=== PATIENT | female | born 1940 | race Caucasian/White ===

== ENCOUNTER 2020-09-14 22:34 | Emergency (ER) | payer MEDICARE, SELFPAY ==
--- NOTE | ~2020-09-14 | XR_ITS ---
EXAMINATION: XR CHEST CLINICAL INFORMATION: Chest pain COMPARISON: Chest x-ray 12/10/2019 TECHNIQUE: Frontal portable view of the chest was obtained. 11:09 PM FINDINGS: Lungs are clear. No pulmonary vascular congestion. There is no pleural effusion. The heart size is normal. The cardiac and mediastinal contours are normal. There are calcifications of the thoracic aorta. There are multilevel degenerative changes of dorsal spine. XR/XR chest 1V IMPRESSION: Unremarkable examination.
[2020-09-14 22:37] VITALS: BP 181/68; PULSE 92; RESP 18; TEMP 36.7; O2SAT 98; BMI 31.1
--- NOTE | 2020-09-14 22:43 | ECG_ITS ---
Test Reason : CHEST PAIN Blood Pressure : / mmHG Vent. Rate : 085 BPM Atrial Rate : 085 BPM P-R Int : 154 ms QRS Dur : 140 ms QT Int : 400 ms P-R-T Axes : 039 -80 024 degrees QTc Int : 476 ms Normal sinus rhythm Right bundle branch block Left anterior fascicular block Bifascicular block Septal infarct , age undetermined Abnormal ECG When compared with ECG of 10-DEC-2019 17:47, Right bundle branch block is now Present Referred By: Generic ED Physician Electronically Signed By:DOMINICK HERRERA MD
[2020-09-14 23:48] LABS: MANUAL DIFF FLAG NO
[2020-09-14] MEDS: Aspirin Enteric Coated 325 MG TABLET.DR PO (23:48)
[2020-09-14 23:49] LABS: Basophils Percent Auto 0.2 % (0-2); Hematocrit 36.1 % (37-47); Hemoglobin 11.5 g/dl (12.0-16.0); Imm Gran Abs Auto 0.06 X10*3/uL (0.00-0.03); Imm Gran Pct Auto 0.5 % (0.0-0.4); Lymphocytes Absolute Auto 0.8 X10*3/uL (1.2-4.9); Lymphocytes Percent Auto 6.7 % (20-40); Mean Corpuscular HGB Conc 31.9 g/dl (31.0-35.0); Mean Corpuscular Hemoglobin 25.6 pg (27.0-33.0); Mean Corpuscular Volume 80.2 fL (80-98); Mean Platelet Volume 9.9 fL (9.4-12.3); Monocytes Absolute Auto 0.7 X10*3/uL (0.1-1.2); Monocytes Percent Auto 5.9 % (2-11); Neutrophils Absolute Auto 10.4 X10*3/uL (2.0-8.3); Neutrophils Percent Auto 86.7 % (45-73); Platelet Count 358 X10*3/uL (160-400); Red Cell Distribution Width 14.4 % (11.0-16.0)
[2020-09-15 00:09] LABS: Anion Gap 15 (12-20); Blood Urea Nitrogen 15 mg/dL (9-16); Calcium 9.6 mg/dL (8.4-10.2); Carbon Dioxide 27 mmol/L (22-29); Chloride 101 mmol/L (96-108); Estimated Glomerular Filt Rate > 60; Glucose Random 209 mg/dL (60-115); Potassium 3.6 mmol/L (3.3-5.1); Sodium 139 mmol/L (135-145)
[2020-09-15 00:17] LABS: Troponin-I High Sensitivity 3.5 ng/L (<3.5-17.0)
--- NOTE | 2020-09-15 00:58 | ED.CHESTPAIN ---
HPI - Chest Pain General Chief Complaint: Chest Pain Stated Complaint: chest pain Time Seen by Provider: 09/14/20 22:53 Source: patient Mode of arrival: ambulatory Limitations: no limitations History of Present Illness HPI narrative: patient comes emergency room complaining of chest pressure. Patient states that she has had this sensation before, usually triggered by an environment for allergen. Patient used her inhaler twice but then resolved the chest pressure. However, when patient arrived to emergency room, she no longer had any symptoms. Patient states the chest pressure started earlier this morning. Related Data Allergies Allergy/AdvReac Type Severity Reaction Status Date / Time NSAIDS (Non-Steroidal Allergy Severe HIGH DOSES Verified 09/14/20 22:36 Anti-Inflamma AFFECT HER [NSAIDS (NON-STEROIDAL ANTI-INFLAMMA] Sulfa (Sulfonamide Allergy Intermediate THROAT Verified 09/14/20 22:36 Antibiotics) CLOSES [SULFA (SULFONAMIDE ANTIBIOTICS)] BEE STINGS Allergy Intermediate SYNCOPE, Uncoded 12/10/19 16:28 RASH Review of Systems Review of Systems: Constitutional : No Weight loss, No Fever, No Chills, No Night Sweats, No Fatigue, No Malaise ENT/Mouth : No Hearing loss, No Ear Pain, No Nasal Congestion, No Sinus Pain, No Hoarseness, No sore throat, No Rhinorrhea, No Swallowing Difficulty Eyes: No Eye Pain, No Swelling, No Redness, No Foreign Body, No Discharge, No Vision Changes Cardiovascular Chest pressure that resolved, No SOB, No Dyspnea on Exertion, No Orthopnea, No Edema, No Palpitations Respiratory : No Cough, No Sputum, No Wheezing, No Smoke Exposure, No Dyspnea Gastrointestinal : No Nausea, No Vomiting, No Diarrhea, No Constipation, No abdominal Pain, No Hematochezia, No Melena Genitourinary : no irregular bleeding, No Dysuria, No Urinary Frequency, No Hematuria, No Urinary Incontinence, No Urgency, No Flank Pain, No Urinary Flow Changes, No Hesitancy Musculoskeletal : No joint pain, No Myalgias, No Joint Swelling Skin : No Skin Lesions, No rash Neuro : No Weakness, No Numbness, No Paresthesias, No Loss of Consciousness, No Dizziness, No Headache Psych : No Anxiety/Panic, No Depression, No SI/HI/AH/VH, No Social Issues, Heme/Lymph: No Bruising, No Bleeding,No Lymphadenopathy Endocrine : No Polyuria, No Polydipsia, No Temperature Intolerance [facility] Past Medical History Medical History Arthritis COVID-19 HTN (hypertension) Reactive airway disease Spinal stenosis Surgical History H/O: hysterectomy Total knee replacement status Social History Social History Advance Directives: No Advance Directives Information Provided: No Physical Exam Vital Signs: Vital Signs: Last Vital Signs Temp 98.1 F 09/14/20 22:37 Pulse 92 09/14/20 22:37 Resp 18 09/14/20 22:37 BP 181/68 H 09/14/20 22:37 Pulse Ox 98 09/14/20 22:37 Body Mass Index 31.1 Appearance: Alert. Oriented X3. No acute distress. Eyes: Pupils equal, round and reactive to light. ENT: Pharynx normal. Neck: Normal inspection. Neck supple. No lymph nodes noted. No crepitus CVS: Normal heart rate and rhythm. Pulses normal. Normal S1 and S2, +2 systolic murmur in left sternal border Respiratory: No respiratory distress. Breath sounds normal. No Wheezing. No rales Abdomen: Soft and nontender. No rigidity. No distention. good BS x4 Skin: Skin warm and dry. Normal skin color. Normal skin turgor. Extremities: No lower extremity edema. No lower extremity edema. No Lacerations. No Rash Neuro: Oriented X 3. No motor deficit. No sensory deficit. Moving all extermities. No slurred speech. Course Course Course Narrative: patient remains asymptomatic, it has been over 8 hours since patient initially developed the symptoms, troponin is negative. Patient remains asymptomatic MDM - Chest Pain Lab Data Result diagrams: 09/14/20 23:43 09/14/20 23:43 Labs: Lab Results 09/14/20 09/14/20 09/14/20 Range/Units 23:43 23:43 23:43 WBC 12.0 H (4.8-10.8) X10*3/uL RBC 4.50 (4.20-5.50) X10*6/uL Hgb 11.5 L (12.0-16.0) g/dl Hct 36.1 L (37-47) % MCV 80.2 (80-98) fL MCH 25.6 L (27.0-33.0) pg MCHC 31.9 (31.0-35.0) g/dl RDW 14.4 (11.0-16.0) % Plt Count 358 (160-400) X10*3/uL MPV 9.9 (9.4-12.3) fL Immature Gran % (Auto) 0.5 H (0.0-0.4) % Neut % (Auto) 86.7 H (45-73) % Lymph % (Auto) 6.7 L (20-40) % [place] % (Auto) 5.9 (2-11) % Eos % (Auto) 0.0 (0-4) % Baso % (Auto) 0.2 (0-2) % Lymph # (Auto) 0.8 L (1.2-4.9) X10*3/uL [place] # (Auto) 0.7 (0.1-1.2) X10*3/uL Eos # (Auto) 0.0 (0.0-0.4) X10*3/uL Baso # (Auto) 0.0 (0.0-0.2) X10*3/uL Abs Immat Gran (auto) 0.06 H (0.00-0.03) X10*3/uL Absolute Neuts (auto) 10.4 H (2.0-8.3) X10*3/uL Absolute Nucleated RBC 0.000 (0.0-0.012) X10*3/uL Nucleated RBC % (auto) 0.0 (0.0-0.2) /100WBC Sodium 139 (135-145) mmol/L Potassium 3.6 (3.3-5.1) mmol/L Chloride 101 (96-108) mmol/L Carbon Dioxide 27 (22-29) mmol/L Anion Gap 15 (12-20) BUN 15 (9-16) mg/dL Creatinine 0.68 (0.5-1.4) mg/dL Estim Creat Clear Calc 57.0 Estimated GFR > 60 Random Glucose 209 H (60-115) mg/dL Calcium 9.6 (8.4-10.2) mg/dL Troponin I High Sens 3.5 (<3.5-17.0) ng/L Imaging Data Chest x-ray: Radiologist's impression: FINDINGS: Lungs are clear. No pulmonary vascular congestion. There is no pleural effusion. The heart size is normal. The cardiac and mediastinal contours are normal. There are calcifications of the thoracic aorta. There are multilevel degenerative changes of dorsal spine. XR/XR chest 1V IMPRESSION: Unremarkable examination. ECG Data ECG #1: Attestation: I personally reviewed and interpreted this ECG as follows: ( senna rhythm, right bundle branch block, nonspecific T-wave inversion in lead V2, QTC 476) Discharge Plan Discharge Clinical Impression: Atypical chest pain Patient Disposition: Home, Self-Care Instructions: Chest Pain (ED) Additional Instructions: Please follow-up with your primary care physician tomorrow. If you have any worsening or new symptoms, please return to the emergency room or call 911
[2020-09-15 01:12] VITALS: BP 128/72; PULSE 67; RESP 16; TEMP 36.7; O2SAT 99
== END 2020-09-15 01:14 | disposition home or self-care (01) ==
PROVIDERS: Emergency Provider Emergency Medicine; PCP Internal Medicine
DX: R07.89 Other chest pain (principal); I10 Essential (primary) hypertension
CPT/HCPCS: 36415; 71045; 80048; 84484; 85025; 93005; 99283; 99284

== ENCOUNTER 2023-10-26 19:00 | Emergency (ER) | payer MEDICARE, SELFPAY ==
--- NOTE | 2023-10-26 | ECG_ITS ---
Test Reason : CHEST PAIN Blood Pressure : / mmHG Vent. Rate : 083 BPM Atrial Rate : 083 BPM P-R Int : 162 ms QRS Dur : 140 ms QT Int : 400 ms P-R-T Axes : 036 -82 017 degrees QTc Int : 470 ms Normal sinus rhythm Right bundle branch block Left anterior fascicular block Bifascicular block Abnormal ECG When compared with ECG of 14-SEP-2020 22:51, No significant change was found Referred By: Generic ED Physician Electronically Signed By:DOMINICK HERRERA MD
[2023-10-26 19:08] VITALS: BP 172/104; PULSE 91; O2SAT 99
[2023-10-26 19:09] VITALS: BP 164/81; PULSE 91; RESP 18; TEMP 36.7; O2SAT 96; BMI 31.5
--- NOTE | 2023-10-26 19:18 | PC.NURSE ---
pt states she is pain free but then goes on to state I have waves of tremendous heart burn. endorses the need to spit up when the heart burn is bothering her.
[2023-10-26 19:28] LABS: MANUAL DIFF FLAG NO
[2023-10-26 19:29] LABS: Basophils Absolute Auto 0.1 X10*3/uL (0.0-0.2); Basophils Percent Auto 0.9 % (0-2); Eosinophils Absolute Auto 0.2 X10*3/uL (0.0-0.4); Eosinophils Percent Auto 2.4 % (0-4); Hematocrit 34.2 % (37.0-47.0); Hemoglobin 10.9 g/dl (12.0-16.0); Imm Gran Abs Auto 0.02 X10*3/uL (0.00-0.03); Imm Gran Pct Auto 0.3 % (0.0-0.4); Lymphocytes Absolute Auto 1.7 X10*3/uL (1.2-4.9); Lymphocytes Percent Auto 21.9 % (20-40); Mean Corpuscular HGB Conc 31.9 g/dl (31.0-35.0); Mean Corpuscular Hemoglobin 24.4 pg (27.0-33.0); Mean Corpuscular Volume 76.7 fL (80.0-98.0); Mean Platelet Volume 10.3 fL (9.4-12.3); Monocytes Absolute Auto 0.6 X10*3/uL (0.1-1.2); Monocytes Percent Auto 7.9 % (2-11); Neutrophils Percent Auto 66.6 % (45-73); Platelet Count 298 X10*3/uL (160-400); Red Blood Count 4.46 X10*6/uL (4.20-5.50); Red Cell Distribution Width 16.6 % (11.0-16.0); White Blood Count 7.6 X10*3/uL (4.8-10.8)
[2023-10-26 19:46] LABS: Alanine Aminotransferase 15 U/L (0-31); Albumin Level 4.2 g/dL (3.5-5.0); Alkaline Phosphatase 64 U/L (39-117); Anion Gap 12 (12-20); Aspartate Amino Transferase 20 U/L (5-31); Bilirubin Direct 0.1 mg/dL (0.0-0.5); Bilirubin Total 0.3 mg/dL (0.0-1.0); Blood Urea Nitrogen 21 mg/dL (9-16); Calcium 9.9 mg/dL (8.4-10.2); Carbon Dioxide 27 mmol/L (22-29); Chloride 106 mmol/L (96-108); Estimated Glomerular Filt Rate > 60; Glucose Random 101 mg/dL (60-115); Lipase 53 U/L (8-78); Potassium 3.9 mmol/L (3.3-5.1); Sodium 141 mmol/L (135-145)
[2023-10-27] VITALS: BP 136/81; PULSE 74; RESP 16; TEMP 36.7
[2023-10-27 02:00] VITALS: BP 135/84; PULSE 69; RESP 18; TEMP 36.8; O2SAT 95
--- NOTE | 2023-10-27 03:23 | ED.GENADULT ---
HPI - General Adult General Chief complaint: General Medical Stated complaint: was choking, now just has tight feeling in throat Time Seen by Provider: 10/27/23 03:23 History of Present Illness ED Provider: Nic CONKLIN narrative: The patient is an 83-year-old woman who developed a severe choking episode. She had prepared ribs for dinner. She says she used a recipe she has used many times. She was eating her 1st rib when she started to have a choking episode. The choking episode was quite prolonged and associated with a sense of significant heartburn. Ultimately she had to call an ambulance because the symptoms were so severe. By the time that I saw the patient her symptoms had entirely subsided and she had been feeling well for some time. She says that she had a total of about 4 hours during which time she had a lot of heartburn and was continuously bringing up saliva and spitting. She has never had an episode like this before. Related Data Allergies Allergy/AdvReac Type Severity Reaction Status Date / Time NSAIDS (Non-Steroidal Allergy Severe HIGH DOSES Verified 10/26/23 19:11 Anti-Inflamma AFFECT HER [NSAIDS (NON-STEROIDAL ANTI-INFLAMMA] Sulfa (Sulfonamide Allergy Intermediate THROAT Verified 10/26/23 19:11 Antibiotics) CLOSES [SULFA (SULFONAMIDE ANTIBIOTICS)] Bleach (Sodium Hypochlorite) Allergy Difficulty Verified 10/26/23 19:11 Breathing BEE STINGS Allergy Intermediate SYNCOPE, Uncoded 10/26/23 19:11 RASH Review of Systems Review of Systems: Yes all other systems are reviewed and are negative PMFSH Past Medical History Medical History Arthritis COVID-19 HTN (hypertension) Reactive airway disease Spinal stenosis Surgical History H/O: hysterectomy Total knee replacement status Social History Social History Smoked in Last 30 Days: No Use of substances other than those prescribed or required for medical reasons: No Advance Directives: No Advance Directives Information Provided: No Physical Exam ED Vital Signs: Vital Signs - 24 hr 10/26/23 19:09 10/27/23 00:00 10/27/23 02:00 Temperature 98.1 F 98.0 F 98.2 F Pulse Rate 91 74 69 Respiratory Rate 18 16 18 Blood Pressure 164/81 H 136/81 135/84 Pulse Oximetry 96 95 Oxygen Delivery Method Room Air Room Air 10/27/23 04:00 10/27/23 04:35 Temperature 97.9 F 97.9 F Pulse Rate 65 65 Respiratory Rate 12 12 Blood Pressure 154/95 H 154/95 H Pulse Oximetry 98 98 Oxygen Delivery Method Room Air Room Air BMI result Body Mass Index 31.5 Const Other: The patient is a very pleasant 83-year-old woman. She appears somewhat chronically frail, but does not seem acutely ill in anyway. HENMT Other: Face is symmetrical. Mucous membranes moist. Posterior pharynx is unremarkable. Mouth: Normal oral and palatal mucosa present, oropharynx normal and moist mucous membranes Eyes General: appearance normal, both eyes and all related structures Alignment and Position: alignment normal Conjunctivae: conjunctivae normal Pupils: Equal, round and reactive pupils present Neck Neck: Yes full ROM and Yes no JVD Resp Effort & Inspection: normal respiratory effort Auscultation: clear to auscultation bilaterally Cardio Rate: regular rate Rhythm: regular rhythm Heart sounds: S1 normal heart sound present and S2 normal heart sound present GI Other: Soft and non-tender Skin General skin exam: no rashes or lesions noted and dry skin Neuro Other: The patient is awake, alert, pleasant, cooperative. Demeanor is entirely nontoxic. Cranial nerves grossly intact. Moves extremities normally. Steady gait. Cranial nerves: Yes Equal, round and reactive pupils present Extrem General: Yes normal to inspection and Yes no pedal edema Medical Decision Making Medical Decision Making MDM Narrative: The patient is a very pleasant 83-year-old who presents to the emergency room after a prolonged choking episode that began as she was eating some ribs she had just cooked. She describes wretch and bringing up ?slime? for several hours and having significant chest discomfort that she describes as heartburn. Her EKG is unchanged. Her symptoms resolved spontaneously. She is currently tolerating her secretions normally and is able to drink fluids easily. No current signs of an esophageal obstruction. A troponin was done several hours after the end of her episode and was normal. My suspicion for an acute coronary syndrome in this case would be low. Her EKG is unchanged. I think she may be discharged with instructions to avoid, spicy food and chew her food and follow up with her regular doctor. Lab Data 10/26/23 19:24 10/26/23 19:24 Labs: Lab Results 10/26/23 10/27/23 10/27/23 Range/Units 19:24 03:37 19:24 WBC 7.6 (4.8-10.8) X10*3/uL RBC 4.46 (4.20-5.50) X10*6/uL Hgb 10.9 L (12.0-16.0) g/dl Hct 34.2 L (37.0-47.0) % MCV 76.7 L (80.0-98.0) fL MCH 24.4 L (27.0-33.0) pg MCHC 31.9 (31.0-35.0) g/dl RDW 16.6 H (11.0-16.0) % Plt Count 298 (160-400) X10*3/uL MPV 10.3 (9.4-12.3) fL Immature Gran % (Auto) 0.3 (0.0-0.4) % Neut % (Auto) 66.6 (45-73) % Lymph % (Auto) 21.9 (20-40) % [place] % (Auto) 7.9 (2-11) % Eos % (Auto) 2.4 (0-4) % Baso % (Auto) 0.9 (0-2) % Lymph # (Auto) 1.7 (1.2-4.9) X10*3/uL [place] # (Auto) 0.6 (0.1-1.2) X10*3/uL Eos # (Auto) 0.2 (0.0-0.4) X10*3/uL Baso # (Auto) 0.1 (0.0-0.2) X10*3/uL Abs Immat Gran (auto) 0.02 (0.00-0.03) X10*3/uL Absolute Neuts (auto) 5.0 (2.0-8.3) x10*3/uL Absolute Nucleated RBC 0.000 (0.0-0.012) X10*3/uL Nucleated RBC % (auto) 0.0 (0.0-0.2) /100WBC Sodium 141 (135-145) mmol/L Potassium 3.9 (3.3-5.1) mmol/L Chloride 106 (96-108) mmol/L Carbon Dioxide 27 (22-29) mmol/L Anion Gap 12 (12-20) BUN 21 H (9-16) mg/dL Creatinine 0.73 (0.5-1.4) mg/dL Estim Creat Clear Calc 53.0 Estimated GFR > 60 Random Glucose 101 (60-115) mg/dL Calcium 9.9 (8.4-10.2) mg/dL Total Bilirubin 0.3 (0.0-1.0) mg/dL Direct Bilirubin 0.1 (0.0-0.5) mg/dL AST 20 (5-31) U/L ALT 15 (0-31) U/L Alkaline Phosphatase 64 (39-117) U/L Troponin I High Sens 5.2 Cancelled (<3.5-17.0) ng/L Total Protein 7.0 (6.5-8.0) g/dL Albumin 4.2 (3.5-5.0) g/dL Lipase 53 (8-78) U/L Independent Interpretation I performed an independent interpretation of an: EKG Interpretation: EKG shows normal sinus rhythm at 83 bpm. There is an old right bundle branch block. Old left anterior particular block. No significant change from previous. Discharge Plan Discharge Clinical Impression: Choking episode, Heartburn Patient Disposition: Home, Self-Care Additional Instructions: Your testing is reassuring. This seems to have been an unusual choking episode but there is no evidence of any thing more dangerous at work. Please avoid any spicy foods. Please make sure that you chew all of your foods very well. Please contact your regular doctor's office on Sunday to make a follow up appointment to discuss this episode further. Return to the emergency room if significantly worse. Referrals: Iram Meléndez MD [Primary Care Provider] - Interventions: ED Discharge Assessment Last Done: 10/27/23 04:35 Discharge Date/Time: 10/27/23 04:47 Print Language: [place]
[2023-10-27 04:00] VITALS: BP 154/95; PULSE 65; RESP 12; TEMP 36.6; O2SAT 98
[2023-10-27 04:03] LABS: Troponin-I High Sensitivity 5.2 ng/L (<3.5-17.0)
[2023-10-27 04:35] VITALS: BP 154/95; PULSE 65; RESP 12; TEMP 36.6; O2SAT 98
== END 2023-10-27 04:47 | disposition home or self-care (01) ==
PROVIDERS: Emergency Provider Emergency Medicine; PCP Internal Medicine
DX: T17.928A Food in respiratory tract, part unspecified causing other injury, initial encounter (principal); X58.XXXA Exposure to other specified factors, initial encounter; K21.9 Gastro-esophageal reflux disease without esophagitis; I45.10 Unspecified right bundle-branch block; I44.4 Left anterior fascicular block
CPT/HCPCS: 36415; 80048; 80076; 83690; 84484; 85025; 93005; 99283; 99284

== ENCOUNTER → 2023-10-26 19:22 | Outpatient (BNV) | payer MEDICARE, SELFPAY | PROVIDERS: Emergency Provider Emergency Medicine; PCP Internal Medicine; Visit Provider Internal Medicine Cardiovascular Disease | DX: R94.31 Abnormal electrocardiogram [ECG] [EKG] (principal) | CPT/HCPCS: 93010 ==